=== PATIENT | female | born 1990 | race African-American/Black ===

== ENCOUNTER 2018-12-10 16:25 | Emergency (ER) | payer MEDICAID ==
[2018-12-10 16:43] VITALS: BP 131/79
--- NOTE | 2018-12-10 17:27 | ER Document Report ---
ED Medical Screen (RME) - General Chief Complaint: Abdominal Cramping Stated Complaint: VAGINAL BLEEDING WITH Time Seen by Provider: 12/10/18 17:22 Primary Care Provider: HEALTH,EMPLOYEE [Primary Care Provider] - Follow up as needed Notes: Patient is approximately 6 weeks , and her second , and she is having some cramping in vaginal spotting bleeding yesterday and then today about 3 PM she had some bleeding and passed what she calls a clot in the toilet bowl. She took a picture of what was in the toilet and I have looked at it and it looks more like a possible gestational sac along with some clot. Patient has been in good health. On no prescription medications. Does not smoke. - Related Data Allergies/Adverse Reactions: No Known Allergies Allergy (Unverified 12/28/12 16:42) Past Medical History - Social History Chew tobacco use (# tins/day): No Frequency of alcohol use: None Drug Abuse: None Family history: Reviewed & Not Pertinent Review of Systems - Review of Systems Notes: REVIEW OF SYSTEMS: CONSTITUTIONAL : Denies fever. EENT: Denies eye, ear, nose or mouth or throat pain or other symptoms. CARDIOVASCULAR: Denies chest pain. RESPIRATORY: Denies cough, chest congestion, or shortness of breath. GASTROINTESTINAL: Denies abdominal pain or nausea, vomiting, or diarrhea. GENITOURINARY: See HPI. MUSCULOSKELETAL: Denies back or neck pain. Denies joint pain or swelling. SKIN: Denies rash or skin lesions. NEUROLOGICAL: Denies LOC or altered mental status. Denies headache. Denies sensory loss or motor deficits. ALL OTHER SYSTEMS REVIEWED AND NEGATIVE. Physical Exam - Vital signs Vitals: Temp Pulse Resp BP Pulse Ox 99.0 F 80 16 131/79 H 99 12/10/18 16:42 12/10/18 16:42 12/10/18 16:42 12/10/18 16:42 12/10/18 16:42 Interpretation: Normal Notes: PHYSICAL EXAMINATION: GENERAL: Well-appearing, in no acute distress. HEAD: Atraumatic, normocephalic. NECK: Normal range of motion, supple. LUNGS: Breath sounds clear and equal bilaterally. HEART: Regular rate and rhythm without murmurs. ABDOMEN: Soft, nontender. No guarding or rebound. No masses. BACK: No tenderness throughout entire back. EXTREMITIES: Normal range of motion without pain. NEUROLOGICAL: Normal speech, normal gait. Normal sensory, motor, and reflex exams. Awake, alert, and oriented x3. Cranial nerves normal. PSYCH: Normal mood, normal affect. SKIN: Warm, dry, no rashes. Course - Re-evaluation Re-evalutation: 12/10/18 20:53 Beta-hCG is 350. Ultrasound does not show any evidence of . Patient says she felt a lot better and less cramps after passing the clots. 12/10/18 20:54 Patient's blood type is a positive so she does not need RhoGam. - Vital Signs Vital signs: Temp Pulse Resp BP Pulse Ox 99.0 F 80 16 131/79 H 99 12/10/18 16:42 12/10/18 16:42 12/10/18 16:42 12/10/18 16:42 12/10/18 16:42 - Laboratory Result Diagrams: 12/10/18 18:39 Laboratory results interpreted by me: 12/10/18 12/10/18 18:39 18:39 WBC 11.7 H Beta HCG, Quant 350.64 H - Diagnostic Test Radiology reviewed: Image reviewed, Reports reviewed - Ultrasound showed no evidence of in the uterus or outside the uterus. Doctor's Discharge - Discharge Clinical Impression: Miscarriage Condition: Stable Disposition: HOME, SELF-CARE Additional Instructions: Miscarriage You have had a miscarriage (medically called a "spontaneous "). The miscarriage occurred because the fetus did not develop normally. There is nothing you did to cause it, and nothing you could have done to prevent it. About one in four ends in miscarriage. You should rest in bed for two or three days. As there is some risk of infection of the uterus, you should not have intercourse for one week (or until okayed by your physician). You might not have a period for six to eight weeks. You should not become again for at least three months -- the uterus requires time to get back to normal. Call the doctor or return for re-examination if there is heavy or persistent vaginal bleeding, fever, foul discharge, continued cramping pains, or abdominal pain. Ibuprofen Ibuprofen is an excellent, safe drug for pain control. In addition, it has potent antiinflammatory effects which are beneficial, especially in the treatment of injuries, arthritis, or tendonitis. It's best to take ibuprofen with food. Persons with ulcer disease or allergy to aspirin should notify their physician of this before taking ibuprofen. Take the medication exactly as prescribed. Don't take additional doses unless instructed to do so by your doctor. If you develop wheezing, shortness of breath, hives, faintness, stomach pain, vomiting, or dark black stools, return for re-evaluation at once. USE OF ACETAMINOPHEN (Tylenol): Acetaminophen may be taken for pain relief or fever control. It's much safer than aspirin, offering a wider range of "safe" dosages. It is safe during . Some brand names are Tylenol, Panadol, Datril, Anacin 3, Tempra, and Liquiprin. Acetaminophen can be repeated every four hours. The following are maximum recommended dosages: WEIGHT Dose Drops Elixir Chewable(80mg) (LBS.) drprs=droppers tsp=teaspoon >89 pounds or adults 650 mg to 900 mg Acetaminophen can be repeated every four hours. Maximum dose not to exceed 4000 mg a day. These maximum recommended dosages are slightly higher than the dosages written on the product container, but these dosages are very safe and below the toxic dosage for acetaminophen. FOLLOW-UP CARE: If you have been referred to a physician for follow-up care, call the physicians office for an appointment as you were instructed or within the next two days. If you experience worsening or a significant change in your symptoms, notify the physician immediately or return to the Emergency Department at any time for re-evaluation. Return if you have new or worsening symptoms. Return if you have fevers, etc. 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 Referrals: HEALTH,EMPLOYEE [Primary Care Provider] - Follow up as needed
--- NOTE | 2018-12-10 18:52 | RADIOLOGY REPORT (SQ) ---
EXAM DESCRIPTION: U/S OB TRANSVAG W/DOPPLER COMPLETED DATE/TIME: 12/10/2018 6:29 pm REASON FOR STUDY: and vaginal bleeding COMPARISON: None. TECHNIQUE: Transvaginal static and realtime grayscale images acquired of the pelvis. Additional axel cted spectral and color Doppler images recorded. All images stored on PACs. CLINICAL AGE: Unknown BHCG: Not available. LIMITATIONS: None. FINDINGS: UTERUS: No visualized intrauterine . RIGHT ADNEXA: Ovary not identified due to poor acoustical window. No adnexal free fluid. No adnexal masses. LEFT ADNEXA: Normal ovary with normal vascular flow. No adnexal free fluid. No adnexal masses. FREE FLUID: None. OTHER: No other significant finding. IMPRESSION: NO VISUALIZED INTRA- OR EXTRAUTERINE . bHCG LEVEL TOO LOW TO EXPECT VISUALIZATION OF . ECTOPIC CANNOT BE EXCLUDED. FOLLOW-UP ULTRASOUND AND SERIAL BHCG LEVELS STRONGLY RECOMMENDED TO ACCURATELY ASSESS STATU S. TECHNICAL DOCUMENTATION: JOB ID: [id number] [employer]- All Rights Reserved Reading location - IP/workstation name: [email or web address]
[2018-12-10 18:55] LABS: ABSOLUTE EOSINOPHILS # (AUTO) 0.1 10^3/uL (0.0-0.6); ABSOLUTE LYMPHOCYTES (AUTO) 2.6 10^3/uL (0.5-4.7); ABSOLUTE MONOCYTES (AUTO) 0.9 10^3/uL (0.1-1.4); ABSOLUTE NEUT (AUTO) 8.1 10^3/uL (1.7-8.2); BASOPHILS % (AUTO) 0.3 % (0-2); EOSINOPHILS % (AUTO) 0.7 % (0-6); HEMATOCRIT 38.7 % (36.0-47.0); HEMOGLOBIN 12.7 g/dL (12.0-15.5); LYMPHOCYTES % (AUTO) 22.5 % (13-45); MEAN CORPUSCULAR HEMOGLOBIN 29.1 pg (27.0-33.4); MEAN CORPUSCULAR HGB CONC 32.7 g/dL (32.0-36.0); MEAN CORPUSCULAR VOLUME 89 fl (80-97); MONOCYTES % (AUTO) 7.3 % (3-13); PLATELET COUNT 274 10^3/uL (150-450); RED BLOOD COUNT 4.36 10^6/uL (3.72-5.28); RED CELL DISTRIBUTION WIDTH 12.3 % (11.5-14.0); SEGMENTED NEUTROPHILS % (AUTO) 69.2 % (42-78); TOTAL CELLS COUNTED % (AUTO) 100 %; WHITE BLOOD COUNT 11.7 10^3/uL (4.0-10.5)
== END 2018-12-10 19:18 | disposition home or self-care (01) ==
LOC: ER 16:25
DX: O03.9 Complete or unspecified spontaneous abortion without complication (principal); O26.891 Other specified pregnancy related conditions, first trimester; R10.9 Unspecified abdominal pain; Z3A.01 Less than 8 weeks gestation of pregnancy
CPT/HCPCS: 36415; 76817; 84702; 85025; 86900; 86901; 93976; 99284

== ENCOUNTER 2020-01-08 17:11 | Emergency (ER) | payer OTHER ==
[2020-01-08 17:16] VITALS: BP 125/79
--- NOTE | 2020-01-08 17:32 | ER Document Report ---
HPI - HPI Time Seen by Provider: 01/08/20 17:23 Pain Level: 1 Context: Patient is a 29-year-old female who presents emergency department with a chief complaint of check. Patient reports last menstrual cycle was November 27. Patient reports she is not on control. Patient reports she took 3 home digital test today which were positive. Patient states that she wanted to come to the emergency department because she did not believe test at home. Patient reports she wants confirmation saying she can take the right steps to obtain care. Patient reports she has had some lower abdominal cramping without vaginal bleeding or discharge. Patient denies urinary symptoms. - CONSTITUTIONAL Constitutional: DENIES: Fever, Chills - REPRODUCTIVE LMP: 11/27/19 Reproductive: REPORTS: : Past Medical History - General Information source: Patient - Social History Smoking Status: Never Smoker Chew tobacco use (# tins/day): No Frequency of alcohol use: None Drug Abuse: None Lives with: Family Family History: None Patient has suicidal ideation: No Patient has homicidal ideation: No - Past Medical History Cardiac Medical History: Reports: None Pulmonary Medical History: Reports: None EENT Medical History: Reports: None Neurological Medical History: Reports: None Endocrine Medical History: Reports: None Renal/ Medical History: Reports: None. Denies: Hx Peritoneal Dialysis Malignancy Medical History: Reports: None GI Medical History: Reports: None Musculoskeletal Medical History: Reports None Skin Medical History: Reports None Psychiatric Medical History: Reports: None Traumatic Medical History: Reports: None Infectious Medical History: Reports: None Surgical Hx: Negative Vertical Provider Document - CONSTITUTIONAL Agree With Documented VS: Yes Exam Limitations: No Limitations General Appearance: No Apparent Distress - INFECTION CONTROL TRAVEL OUTSIDE OF THE [place] IN LAST 30 DAYS: No - HEENT HEENT: Atraumatic, Normal ENT Exam, Normocephalic, PERRLA - NECK Neck: Normal Inspection - RESPIRATORY Respiratory: Breath Sounds Normal, No Respiratory Distress - CARDIOVASCULAR Cardiovascular: Regular Rate, Regular Rhythm - GI/ABDOMEN Gastrointestinal: Abdomen Soft, Abdomen Non-Tender, Normal Bowel Sounds - MUSCULOSKELETAL/EXTREMETIES Musculoskeletal/Extremeties: FROM - NEURO Level of Consciousness: Awake, Alert, Appropriate - DERM Integumentary: Warm, Dry, No Rash Course - Re-evaluation Re-evalutation: 01/08/20 17:31 Patient here for confirmation of . Will obtain a urinalysis as well as a urine hCG. I do not believe further work-up is necessary as the patient denies abdominal pain. Patient denies vaginal bleeding or discharge. 01/08/20 18:15 Patient's test was positive. Patient's urinalysis unremarkable witho ut infection. Patient sitting upright in chair no acute distress. Patient continues to deny abdominal pain, vaginal bleeding or discharge. Will have the patient follow-up with the health department. - Vital Signs Vital signs: Temp Pulse Resp BP Pulse Ox 98.1 F 88 18 125/79 98 01/08/20 17:15 01/08/20 17:15 01/08/20 17:15 01/08/20 17:15 01/08/20 17:15 - Laboratory Laboratory results interpreted by me: 01/08/20 18:08 Laboratory 01/08/20 17:30 Urine Color YELLOW Urine Appearance CLEAR Urine pH 7.0 Ur Specific [place] 1.019 Urine Protein NEGATIVE Urine Glucose (UA) NEGATIVE Urine Ketones NEGATIVE Urine Blood NEGATIVE Urine Nitrite NEGATIVE Urine Bilirubin NEGATIVE Urine Urobilinogen NEGATIVE Ur Leukocyte Esterase NEGATIVE Urine WBC (Auto) 1 Urine RBC (Auto) 1 Urine Bacteria (Auto) TRACE Squamous Epi Cells Auto 2 Urine Mucus (Auto) RARE Urine Ascorbic Acid 40 H Urine HCG, Qual POSITIVE H Discharge - Discharge Clinical Impression: Positive test Condition: Stable Disposition: HOME, SELF-CARE Additional Instructions: Today was seen in the emergency department to confirm that you are . You did have a positive test here. You do need to establish care with an CULINARY ASSISTANT. [facility] Please make sure that you establish care, start taking a vitamin, and stop taking the ibuprofen that was prescribed to you for your recent dental extraction. If you are in pain you can take Tylenol. Please make sure you are drinking plenty of fluids. Before you are able to follow-up with your CULINARY ASSISTANT return to the emergency department if you develop abdominal pain, vaginal bleeding, discharge is different from her normal or any new or worsening symptoms. You are . care is best started as early in as possible. If you're unsure about continuing this , you should discuss this with your physician or with intelligence operations specialist at [facility]. You should take only medications approved by your physician. Acetaminophen can safely be taken for minor pains. As a rule, medication for chronic conditions such as asthma or seizures can safely be continued. You should discuss with the physician every medicine you take. Any regular exercise program can be continued. Talk to your physician, however, before engaging in competitive or demanding sports. Alcohol, smoking, and "street drugs" are dangerous to your baby. Cocaine is especially dangerous. Don't use any illicit drugs! Referrals: [facility] [Provider Group] - Follow up as needed
[2020-01-08 17:56] LABS: APPEARANCE,URINE CLEAR; BILIRUBIN,URINE NEGATIVE (NEGATIVE); COLOR,URINE YELLOW; GLUCOSE, URINE NEGATIVE (NEGATIVE); KETONES,URINE NEGATIVE (NEGATIVE); LEUKOCYTE ESTERASE,URINE NEGATIVE (NEGATIVE); NITRITE,URINE NEGATIVE (NEGATIVE); PROTEIN,URINE NEGATIVE (NEGATIVE); URINE SPECIFIC GRAVITY 1.019; UROBILINOGEN,URINE NEGATIVE mg/dL (<2.0)
== END 2020-01-08 18:17 | disposition home or self-care (01) ==
LOC: ER 17:11
DX: Z32.01 Encounter for pregnancy test, result positive (principal); R10.30 Lower abdominal pain, unspecified
CPT/HCPCS: 81001; 81025; 99282

== ENCOUNTER 2020-08-19 08:51 | Outpatient (CLI) | payer OTHER ==
[2020-08-19 09:26] LABS: APPEARANCE,URINE SLIGHTLY-CLOUDY; BILIRUBIN,URINE NEGATIVE (NEGATIVE); COLOR,URINE YELLOW; GLUCOSE, URINE NEGATIVE (NEGATIVE); KETONES,URINE NEGATIVE (NEGATIVE); LEUKOCYTE ESTERASE,URINE NEGATIVE (NEGATIVE); NITRITE,URINE NEGATIVE (NEGATIVE); PROTEIN,URINE NEGATIVE (NEGATIVE); URINE SPECIFIC GRAVITY 1.006; UROBILINOGEN,URINE NEGATIVE mg/dL (<2.0)
[2020-08-19 10:09] LABS: URINE AMPHETAMINES SCREEN NEGATIVE; URINE BARBITURATES SCREEN NEGATIVE; URINE BENZODIAZEPINES SCREEN NEGATIVE; URINE COCAINE SCREEN NEGATIVE; URINE MARIJUANA (THC) SCREEN NEGATIVE; URINE METHADONE SCREEN NEGATIVE; URINE PHENCYCLIDINE SCREEN NEGATIVE
--- NOTE | 2020-08-19 11:33 | Non Stress Test Report ---
Non Stress Test Datetime Report Generated by CPN: 08/19/2020 11:32 DEMOGRAPHIC EGA NST: 38.0 INDICATION Indication for Study (NST) Other: LC Provider Order VITAL SIGNS Temperature - NST: 98.2 Pulse - NST: 96 RESP - NST: 16 NBPSYS NST: 133 NBPDIA NST: 80 MONITORING Monitor Explained: Monitor Explained; Test Explained; Patient Verbalized Understanding Time on Monitor: 08/19/2020 10:00 Time off Monitor: 08/19/2020 10:59 NST Duration: 59 NST INTERVENTIONS NST Interventions: IV Fluids Physician Notified NST: Dr. Puga/ K Stewart CNM BABY A: [id number] BABY A Movement : Present Contraction Frequency : Irregular, Irritability FHR Baseline : 135 Accelerations : 15X15 Decelerations : None Variability : Moderate 6-25bpm NST Review: Meets Criteria for Reactive NST NST Review and Verified By : C. Warren RN NST Results: Reactive NST COMMENTS NST Comments: CNM on unit reviewing FHT strip NST REPORT Report Trigger: Send Report
== END 2020-08-19 11:13 | disposition home or self-care (01) ==
LOC: LC 08:51
PROVIDERS: ATTEND Obstetrics & Gynecology Gynecology
DX: O47.1 False labor at or after 37 completed weeks of gestation (principal); Z3A.38 38 weeks gestation of pregnancy
CPT/HCPCS: 59025; 80307; 81005

== ENCOUNTER 2020-09-01 02:45 | Outpatient (CLI) | payer OTHER ==
[2020-09-01 03:46] LABS: APPEARANCE,URINE SLIGHTLY-CLOUDY; BILIRUBIN,URINE NEGATIVE (NEGATIVE); COLOR,URINE YELLOW; GLUCOSE, URINE NEGATIVE (NEGATIVE); KETONES,URINE NEGATIVE (NEGATIVE); LEUKOCYTE ESTERASE,URINE NEGATIVE (NEGATIVE); NITRITE,URINE NEGATIVE (NEGATIVE); PROTEIN,URINE NEGATIVE (NEGATIVE); URINE SPECIFIC GRAVITY 1.004; UROBILINOGEN,URINE NEGATIVE mg/dL (<2.0)
[2020-09-01 04:00] LABS: URINE AMPHETAMINES SCREEN NEGATIVE; URINE BARBITURATES SCREEN NEGATIVE; URINE BENZODIAZEPINES SCREEN NEGATIVE; URINE COCAINE SCREEN NEGATIVE; URINE MARIJUANA (THC) SCREEN NEGATIVE; URINE METHADONE SCREEN NEGATIVE; URINE PHENCYCLIDINE SCREEN NEGATIVE
--- NOTE | 2020-09-01 05:36 | Non Stress Test Report ---
Non Stress Test Datetime Report Generated by CPN: 09/01/2020 05:36 DEMOGRAPHIC EGA NST: 39.6 INDICATION Indication for Study (NST) Other: labor check URINE RESULTS Urine Protein, NST: Negative Urine Ketones - NST: Negative Urine Glucose - NST: Negative Urine Blood - NST: Negative MONITORING Monitor Explained: Monitor Explained; Test Explained Time on Monitor: 09/01/2020 03:10 Time off Monitor: 09/01/2020 05:10 NST Duration: 120 NST INTERVENTIONS NST Interventions: PO Hydration; Reposition Patient BABY A: [id number] BABY A Movement : Present Contraction Frequency : 5-9 FHR Baseline : 135 Accelerations : 15X15 Decelerations : None Variability : Moderate 6-25bpm NST Review: Meets Criteria for Reactive NST NST Review and Verified By : Gregg Wang RN NST Results: Reactive NST REPORT Report Trigger: Send Report
== END 2020-09-01 05:26 | disposition home or self-care (01) ==
LOC: LC 02:45
PROVIDERS: ATTEND Student in an Organized Health Care Education/Training Program
DX: O47.1 False labor at or after 37 completed weeks of gestation (principal); Z3A.39 39 weeks gestation of pregnancy
CPT/HCPCS: 59025; 80307; 81005

== ENCOUNTER 2020-09-05 02:16 | Inpatient (IN) | payer OTHER ==
[2020-09-05] MEDS ORDERED: OXYTOCIN 10 UNIT/ML VIAL ONE (02:59)
[2020-09-05] MEDS ORDERED: MISOPROSTOL 0.2 MG TABLET ONE (02:59)
[2020-09-05] MEDS ORDERED: PENICILLIN G-K 5 MILLION UNIT VIAL ONE ×3 (03:00→10:52)
[2020-09-05] MEDS ORDERED: OXYTOCIN/0.9 % SODIUM CHLORIDE 30 UNIT/500 ML RTUINJ ONE (03:00)
[2020-09-05] MEDS ORDERED: LIDOCAINE 1% INJ-PF (10 MG/ML) 30 ML SDV ONE (03:00)
[2020-09-05] MEDS ORDERED: PENICILLIN G POTASSIUM 5,000,000 UNIT in DEXTROSE 5%-WATER 100 ML IV ONE (03:22)
[2020-09-05] MEDS ORDERED: RINGERS SOLUTION,LACTATED 1,000 ML IV PRN (03:22)
[2020-09-05] MEDS ORDERED: RINGERS SOLUTION,LACTATED 1,000 ML IV ONE (03:22)
[2020-09-05 04:03] LABS: ABSOLUTE LYMPHOCYTES (AUTO) 1.8 10^3/uL (0.5-4.7); ABSOLUTE MONOCYTES (AUTO) 0.9 10^3/uL (0.1-1.4); ABSOLUTE NEUT (AUTO) 5.8 10^3/uL (1.7-8.2); BASOPHILS % (AUTO) 0.3 % (0-2); EOSINOPHILS % (AUTO) 0.2 % (0-6); HEMATOCRIT 34.8 % (36.0-47.0); HEMOGLOBIN 11.8 g/dL (12.0-15.5); LYMPHOCYTES % (AUTO) 21.2 % (13-45); MEAN CORPUSCULAR HEMOGLOBIN 28.2 pg (27.0-33.4); MEAN CORPUSCULAR VOLUME 83 fl (80-97); MONOCYTES % (AUTO) 10.2 % (3-13); PLATELET COUNT 206 10^3/uL (150-450); RED CELL DISTRIBUTION WIDTH 15.9 % (11.5-14.0); SEGMENTED NEUTROPHILS % (AUTO) 68.1 % (42-78); TOTAL CELLS COUNTED % (AUTO) 100 %; WHITE BLOOD COUNT 8.6 10^3/uL (4.0-10.5)
[2020-09-05] MEDS ORDERED: PENICILLIN G POTASSIUM 2,500,000 UNIT in DEXTROSE 5%-WATER 50 ML IV SCH (07:23)
[2020-09-05 07:53] LABS: APPEARANCE,URINE CLEAR; BILIRUBIN,URINE NEGATIVE (NEGATIVE); COLOR,URINE YELLOW; GLUCOSE, URINE NEGATIVE (NEGATIVE); KETONES,URINE NEGATIVE (NEGATIVE); LEUKOCYTE ESTERASE,URINE NEGATIVE (NEGATIVE); NITRITE,URINE NEGATIVE (NEGATIVE); PROTEIN,URINE NEGATIVE (NEGATIVE); URINE SPECIFIC GRAVITY 1.011; UROBILINOGEN,URINE NEGATIVE mg/dL (<2.0)
[2020-09-05 08:09] LABS: URINE AMPHETAMINES SCREEN NEGATIVE; URINE BARBITURATES SCREEN NEGATIVE; URINE BENZODIAZEPINES SCREEN NEGATIVE; URINE COCAINE SCREEN NEGATIVE; URINE MARIJUANA (THC) SCREEN NEGATIVE; URINE METHADONE SCREEN NEGATIVE; URINE PHENCYCLIDINE SCREEN NEGATIVE
[2020-09-05] MEDS ORDERED: GLYCERIN/WITCH HAZEL LEAF 1 EACH MED..WIPE TP PRN (11:46)
[2020-09-05] MEDS ORDERED: PROMETHAZINE HCL 25 MG TABLET PO PRN (11:46)
[2020-09-05] MEDS ORDERED: PROMETHAZINE HCL INJ 25 MG/1 ML VIAL IV PRN (11:46)
[2020-09-05] MEDS ORDERED: BENZOCAINE/MENTHOL AEROSOL SPRAY 56 ML TOP PRN (11:46)
[2020-09-05] MEDS ORDERED: OXYTOCIN/0.9 % SODIUM CHLORIDE 30 UNIT/500 ML RTUINJ IV PRN (11:46)
[2020-09-05] MEDS ORDERED: DIBUCAINE 1% OINTMENT 28 GM TP PRN (11:46)
[2020-09-05] MEDS ORDERED: MEASLES,MUMPS&RUBELLA VACC/PF 0.5 ML VIAL SUBCUT PRN (11:46)
[2020-09-05] MEDS ORDERED: DIPHENHYDRAMINE HCL 25 MG CAPSULE PO PRN (11:46)
[2020-09-05] MEDS ORDERED: MAGNESIUM HYDROXIDE SUSP 30 ML UDCUP PO PRN (11:46)
[2020-09-05] MEDS ORDERED: NA PHOS,M-B/NA PHOS,DI-BA (ADULT) 133 ML ENEMA PR PRN (11:46)
[2020-09-05] MEDS ORDERED: DIPH/PERTUSS(ACELL)/TETANUS VAC/PF 0.5 ML SYR (>=10YO) IM PRN (11:46)
[2020-09-05] MEDS ORDERED: PSEUDOEPHEDRINE HCL 30 MG TABLET PO PRN (11:46)
[2020-09-05] MEDS ORDERED: PROMETHAZINE HCL 25 MG SUPP.RECT PR PRN (11:46)
[2020-09-05] MEDS ORDERED: IBUPROFEN 800 MG TABLET ONE (11:49)
[2020-09-05] MEDS ORDERED: BENZOCAINE/MENTHOL AEROSOL SPRAY 56 ML ONE (11:50)
--- NOTE | 2020-09-05 12:27 | Warning Signs in Babies ---
VOD Warning Signs Datetime Report Generated by [facility]: 09/05/2020 12:27 VOD#608 -Warning Signs in Babies: Viewed with Parent(s)/Family (08/19/2020 09:01:Soraya Harvey RN)
[2020-09-05] MEDS: ACETAMINOPHEN 325 MG TABLET PO PRN (16:12)
[2020-09-05] MEDS: IBUPROFEN 800 MG TABLET PO SCH ×2 (18:09→21:50)
[2020-09-05] MEDS: DOCUSATE SODIUM 100 MG CAPSULE PO SCH (18:10)
[2020-09-05] MEDS: FERROUS SULFATE 325 MG TABLET PO SCH (18:11)
[2020-09-05] MEDS: FAMOTIDINE 20 MG TABLET PO SCH (21:49)
[2020-09-06] MEDS: ACETAMINOPHEN 325 MG TABLET PO PRN (03:24)
[2020-09-06] MEDS: IBUPROFEN 800 MG TABLET PO SCH ×3 (05:07→21:38)
[2020-09-06 06:58] LABS: HEMATOCRIT 30.4 % (36.0-47.0); HEMOGLOBIN 10.2 g/dL (12.0-15.5); MEAN CORPUSCULAR HGB CONC 33.4 g/dL (32.0-36.0); MEAN CORPUSCULAR VOLUME 84 fl (80-97); PLATELET COUNT 191 10^3/uL (150-450); RED BLOOD COUNT 3.63 10^6/uL (3.72-5.28); RED CELL DISTRIBUTION WIDTH 16.4 % (11.5-14.0); WHITE BLOOD COUNT 16.1 10^3/uL (4.0-10.5)
--- NOTE | 2020-09-06 10:51 | PDOC PROGRESS REPORT ---
Subjective-OB Progress Note for:: 09/06/20 Physical Exam (OB) Vital Signs: Temp Pulse Resp BP Pulse Ox 97.6 F 69 14 103/68 100 09/06/20 08:00 09/06/20 08:00 09/06/20 08:00 09/06/20 08:00 09/06/20 08:00 Intake & Output 09/05/20 09/06/20 09/07/20 06:59 06:59 06:59 Intake Total 1250 Balance 1250 Weight 76.6 kg - PIH/Pre-Eclampsia Clonus: Negative Headache: Absent Epigastric Pain: No Visual Changes: No - Maternal Morbidity 59. Maternal Morbidity (serious complications experinced by the mother associated with labor and delivery: None of the above - Lochia Lochia Amount: Scant < 10 ml Lochia Color: Rubra/Red - Abdomen Description: Soft Hernia Present: No Bowel Sounds: Normoactive Flatus Presence: Present Stool: No Fundal Description: Firm, Midline Fundal Height: u/u - u/2 Objective-Diagnostic Laboratory: 09/06/20 06:25 09/06/20 06:25 WBC 16.1 H RBC 3.63 L Hgb 10.2 L Hct 30.4 L MCV 84 MCH 28.0 MCHC 33.4 RDW 16.4 H Plt Count 191 Assessment and Plan(PN) - Time Spent with Patient Time with patient: Less than 15 minutes Medications reviewed and adjusted accordingly: Yes - Disposition Anticipated Discharge Disposition: Home, Self Care Anticipated Discharge Timeframe: within 36 hours
[2020-09-06] MEDS: FERROUS SULFATE 325 MG TABLET PO SCH ×2 (20:02→20:04)
[2020-09-06] MEDS: DOCUSATE SODIUM 100 MG CAPSULE PO SCH (20:02)
[2020-09-06] MEDS: FAMOTIDINE 20 MG TABLET PO SCH (20:03)
[2020-09-06] MEDS: SENNOSIDES/DOCUSATE 8.6-50 MG 1 EACH TABLET PO SCH (20:03)
[2020-09-06] MEDS: PRENATAL VITAMIN W DHA CAPSULE PO SCH (20:03)
[2020-09-07] MEDS: IBUPROFEN 800 MG TABLET PO SCH (06:04)
[2020-09-07 07:18] LABS: HEMATOCRIT 27.5 % (36.0-47.0); HEMOGLOBIN 9.4 g/dL (12.0-15.5); MEAN CORPUSCULAR HEMOGLOBIN 28.8 pg (27.0-33.4); MEAN CORPUSCULAR HGB CONC 34.2 g/dL (32.0-36.0); MEAN CORPUSCULAR VOLUME 84 fl (80-97); PLATELET COUNT 178 10^3/uL (150-450); RED BLOOD COUNT 3.28 10^6/uL (3.72-5.28); RED CELL DISTRIBUTION WIDTH 16.1 % (11.5-14.0); WHITE BLOOD COUNT 8.7 10^3/uL (4.0-10.5)
[2020-09-07 08:46] VITALS: BP 102/60
--- NOTE | 2020-09-07 09:37 | PDOC PROGRESS REPORT ---
Subjective-OB Progress Note for:: 09/07/20 Subjective: doing well, no c/o, ready to go home Physical Exam (OB) Vital Signs: Temp Pulse Resp BP Pulse Ox 97.7 F 72 20 102/60 100 09/07/20 08:00 09/07/20 08:00 09/07/20 08:00 09/07/20 08:00 09/07/20 08:00 Intake & Output 09/06/20 09/07/20 09/08/20 06:59 06:59 06:59 Intake Total 1250 600 Output Total 2 Balance 1250 598 - PIH/Pre-Eclampsia DTR's: 1 + Clonus: Negative Headache: Absent Epigastric Pain: No Visual Changes: No - Maternal Morbidity 59. Maternal Morbidity (serious complications experinced by the mother associated with labor and delivery: None of the above - Lochia Lochia Amount: Scant < 10 ml Lochia Color: Rubra/Red - Abdomen Description: Firm, Soft Hernia Present: No Fundal Description: Midline Fundal Height: u/u - u/2 Objective-Diagnostic Laboratory: 09/07/20 06:35 09/07/20 06:35 WBC 8.7 RBC 3.28 L Hgb 9.4 L Hct 27.5 L MCV 84 MCH 28.8 MCHC 34.2 RDW 16.1 H Plt Count 178 Assessment and Plan(PN) - Assessment and Plan (1) Anemia Qualifiers: Other causes of anemia: acute posthemorrhagic Is this a current diagnosis for this admission?: Yes (2) Positive GBS test Is this a current diagnosis for this admission?: Yes (3) Delivery normal Is this a current diagnosis for this admission?: Yes - Time Spent with Patient Time with patient: Less than 15 minutes Medications reviewed and adjusted accordingly: Yes - Disposition Anticipated Discharge Disposition: Home, Self Care Anticipated Discharge Timeframe: within 24 hours
--- NOTE | 2020-09-07 09:41 | PDOC DISCHARGE SUMMARY ---
Impression - Admit/DC Date/PCP Admission Date/Primary Care Provider: 09/05/20 03:03 RODRÍGUEZ DING MD Discharge Date: 09/07/20 - Discharge Diagnosis (1) Anemia Is this a current diagnosis for this admission?: Yes (2) Positive GBS test Is this a current diagnosis for this admission?: Yes (3) Delivery normal Is this a current diagnosis for this admission?: Yes - Additional Information Resuscitation Status: Full Code Discharge Diet: As Tolerated, Regular Discharge Activity: Activity As Tolerated, Pelvic Rest Referrals: RODRÍGUEZ DING MD [Primary Care Provider] - Home Medications: Multivitamins W-Iron [Flintstones Chewable Multivit W/Fe Tab] 1 tab PO DAILY 12/28/12 Ferrous Sulfate [Feosol 325 mg Tablet] 325 mg PO DAILY 08/19/20 HPI Gestational Age: 40.3 Reason(s) for Admission: Onset of Labor, PROM, Group B Strep Positive Procedures: NST, Ultrasound Intrapartum Procedure(s): Spontaneous Vaginal Delivery Hospital Course Hospital Course: routine 59. Maternal Morbidity (serious complications experinced by the mother associated with labor and delivery: None of the above Results Laboratory Results: WBC 8.7 10^3/uL (4.0-10.5) 09/07/20 06:35 RBC 3.28 10^6/uL (3.72-5.28) L 09/07/20 06:35 Hgb 9.4 g/dL (12.0-15.5) L 09/07/20 06:35 Hct 27.5 % (36.0-47.0) L 09/07/20 06:35 MCV 84 fl (80-97) 09/07/20 06:35 MCH 28.8 pg (27.0-33.4) 09/07/20 06:35 MCHC 34.2 g/dL (32.0-36.0) 09/07/20 06:35 RDW 16.1 % (11.5-14.0) H 09/07/20 06:35 Plt Count 178 10^3/uL (150-450) 09/07/20 06:35 Lymph % (Auto) 21.2 % (13-45) 09/05/20 03:43 [place] % (Auto) 10.2 % (3-13) 09/05/20 03:43 Eos % (Auto) 0.2 % (0-6) 09/05/20 03:43 Baso % (Auto) 0.3 % (0-2) 09/05/20 03:43 Absolute Neuts (auto) 5.8 10^3/uL (1.7-8.2) 09/05/20 03:43 Absolute Lymphs (auto) 1.8 10^3/uL (0.5-4.7) 09/05/20 03:43 Absolute Monos (auto) 0.9 10^3/uL (0.1-1.4) 09/05/20 03:43 Absolute Eos (auto) 0.0 10^3/uL (0.0-0.6) 09/05/20 03:43 Absolute Basos (auto) 0.0 10^3/uL (0.0-0.2) 09/05/20 03:43 Seg Neutrophils % 68.1 % (42-78) 09/05/20 03:43 Urine Color YELLOW 09/05/20 07:10 Urine Appearance CLEAR 09/05/20 07:10 Urine pH 7.0 (5.0-9.0) 09/05/20 07:10 Ur Specific [place] 1.011 09/05/20 07:10 Urine Protein NEGATIVE mg/dL (NEGATIVE) 09/05/20 07:10 Urine Glucose (UA) NEGATIVE mg/dL (NEGATIVE) 09/05/20 07:10 Urine Ketones NEGATIVE mg/dL (NEGATIVE) 09/05/20 07:10 Urine Blood MODERATE (NEGATIVE) H 09/05/20 07:10 Urine Nitrite NEGATIVE (NEGATIVE) 09/05/20 07:10 Urine Bilirubin NEGATIVE (NEGATIVE) 09/05/20 07:10 Urine Urobilinogen NEGATIVE mg/dL (<2.0) 09/05/20 07:10 Ur Leukocyte Esterase NEGATIVE (NEGATIVE) 09/05/20 07:10 Urine Ascorbic Acid NEGATIVE (NEGATIVE) 09/05/20 07:10 Membranes Rupture POSITIVE (NEGATIVE) H 09/05/20 02:40 Urine Opiates Screen NEGATIVE 09/05/20 07:10 Urine Methadone Screen NEGATIVE 09/05/20 07:10 Ur Barbiturates Screen NEGATIVE 09/05/20 07:10 Ur Phencyclidine Scrn NEGATIVE 10/28/20 07:10 Ur Amphetamines Screen NEGATIVE 09/05/20 07:10 U Benzodiazepines Scrn NEGATIVE 09/05/20 07:10 Urine Cocaine Screen NEGATIVE 09/05/20 07:10 U Marijuana (THC) Screen NEGATIVE 09/05/20 07:10 RPR NONREACTIVE (NONREACTIVE) 09/05/20 03:43 Blood Type A POSITIVE 09/05/20 03:43 Antibody Screen NEGATIVE 09/05/20 03:43 Plan Health Concerns: routine Plan of Treatment: discharge home, rev S&S to report Goals: no complications Time Spent: Less than 30 Minutes
[2020-09-07] MEDS: SENNOSIDES/DOCUSATE 8.6-50 MG 1 EACH TABLET PO SCH (10:30)
[2020-09-07] MEDS: PRENATAL VITAMIN W DHA CAPSULE PO SCH (10:30)
[2020-09-07] MEDS: DOCUSATE SODIUM 100 MG CAPSULE PO SCH (10:31)
[2020-09-07] MEDS: FAMOTIDINE 20 MG TABLET PO SCH ×2 (10:31→10:40)
[2020-09-07] MEDS: FERROUS SULFATE 325 MG TABLET PO SCH (10:31)
--- NOTE | 2020-09-11 10:54 | Delivery Summary ---
Del Sum A-C Datetime Report Generated by CPN: 09/11/2020 10:53 DELIVERY PERSONNEL DELIVERY PERSONNEL: [id number] Delivery Doctor:: Emilee Tolentino CNM Labor and Delivery Nurse:: Soraya Harvey RNtitle officer Nurse:: ROSE Royal Nursery Nurse:: Marixa Chew RN Direct Marketing Specialist/SHELL MOLDER: Comfort Hong, ST Direct Marketing Specialist/SHELL MOLDER: Cindy Ocampo, HEAD SAWYER MATERNAL INFORMATION Delivery Anesthesia: None Medications After Delivery: Pitocin 30 Units in 500ml NS/D5W Delivery QBL: 231 Maternal Complications: Precipitous Labor (<3hrs) Complication Details: RN remained at from 924 until delivery of infant with continuous monitoring of EFM. Provider Comments: pt progressed to complete, began pushing and quickly delivered a viable baby girl with vigorous respiratory effort and cry spontaneously at . Baby placed on maternal abdomen, cord allowed to stop pulsating then clamped x2 and cut by FOB (3vc noted). Placenta delivered spontaneously intact. Fundus firm @ u+1 then in and out catheter with 150ml urine out, moderate bleeding continued with grape size clot at cervical os then minimal bleeding and fundus firm @ u. Vaginal and perineum inspection revealed no lacerations. Mother and baby remain skin to skin and bonding at this time. LABOR SUMMARY EDC: 09/02/2020 00:00 No. Babies in Womb: 1 Attempted: No Labor Anesthesia: None LABOR INFORMATION Reason for Induction: Not Applicable Onset of Labor: 09/05/2020 09:00 Complete Dilatation: 09/05/2020 10:53 Oxytocin: N/A Group B Beta Strep: positive Antibiotics # of Doses: 3 Antibiotics Time of Last Dose: 09/05/2020 11:00 Name of Antibiotic Given: PCN Steroids Given: None Reason Steroids Not Administered: Not Applicable MEMBRANES Membranes Rupture Method: Spontaneous Rupture of Membranes: 09/05/2020 01:00 Length of Rupture (hr): 10.40 Amniotic Fluid Color: Clear Amniotic Fluid Amount: Moderate Amniotic Fluid Odor: Normal STAGES OF LABOR Stage 1 hr: 1 Stage 1 min: 53 Stage 2 hr: 0 Stage 2 min: 31 Stage 3 hr: 0 Stage 3 min: 5 Total Time in Labor hr: 2 Total Time in Labor min: 29 VAGINAL DELIVERY Episiotomy: None Laceration #1: None Laceration Extension #1: N/A Laceration #2: None Laceration #3: None Laceration Repair: Not Applicable Sponge Count Correct: N/A BABY A INFORMATION Delivery Date/Time: 09/05/2020 11:24 Method of Delivery: Vaginal Method of Delivery: Vaginal Born in Route : No : N/A Forceps: N/A Vacuum Extraction: N/A Shoulder Dystocia : No PRESENTATION/POSITION BABY A Presentation: Cephalic Presentation: Cephalic Presentation: Cephalic Presentation: Unable to Assess Cephalic Presentation: Vertex Breech Presentation: N/A PLACENTA INFORMATION BABY A Placenta Delivery Time : 09/05/2020 11:29 Placenta Method of Delivery: Spontaneous Placenta Status: Delivered SCORES BABY A Heart Rate 1 min: >100 bpm Resp Effort 1 min: Good Cry Reflex Irritability 1 min: Cough or Sneeze or Pulls Away Muscle Tone 1 min: Active Motion Color 1 min: Body [place], Extremities Blue Resuscitation Effort 1 min: Tactile Stimulation SCORE 1 MIN: 9 Heart Rate 5 min: >100 bpm Resp Effort 5 min: Good Cry Reflex Irritability 5 min: Cough or Sneeze or Pulls Away Muscle Tone 5 min: Active Motion Color 5 min: Body [place], Extremities Blue Resuscitation Effort 5 min: N/A SCORE 5 MIN: 9 INFANT INFORMATION BABY A Gestational Age at Delivery: 40.3 Gestational Status: Full Term- 39- 40.6 Weeks Infant Outcome : Liveborn Infant Condition : Stable Infant Sex: Female Sex: Female IDENTIFICATION BABY A Verification Date/Time: 09/05/2020 12:20 ID Band Number: [id number] Mother's Name Verified: Yes Infant RN Verifying Infant: Chip Harvey Additional Verifying Personnel: Emmy Mcdowellfer, RN WEIGHT/LENGTH BABY A Infant Birthweight (gm): 3090 Weight (lb): 6 Weight (oz): 13 Length (in): 20.25 Length (cm): 51.44 CORD INFORMATION BABY A No. Cord Vessels: 3 Nuchal Cord : N/A Infant Suction: None ASSESSMENT BABY A Skin to Skin: No BABY B INFORMATION : N/A SIGNATURES Assignment: Gretchen Riley MD Signature: with User ID: [email or web address] : with User ID: [email or web address]
--- NOTE | 2020-09-11 10:55 | Admission Physical ---
Datetime Report Generated by CPN: 09/11/2020 10:54 CURRENT ADMISSION Chief Complaint: Suspected Ruptured Membranes Admit Impression : Term, Intrauterine ; Ruptured Membranes Admit Plan: Admit to Unit; Initiate Labor Protocol ALLERGIES Medication Allergies: No Medication Allergies: No Known Allergies (09/01/2020) Medication Allergies: No Known Allergies (08/19/2020) Medication Allergies: No Known Allergies (12/28/2012) Latex: No Latex Allergies OBSTETRICAL HISTORY EDC: 09/02/2020 00:00 : 3 Para: 1 Term: 0 : 1 SAB: 0 IAB: 0 Ectopic: 0 Livin Cesareans: 0 VBACs: 0 Multiple Births: 0 Gestational Diabetes: No Rh Sensitization: No Incompetent Cervix: No SPARKLE: No Infertility: No ART Treatment: No Uterine Anomaly: No IUGR: No Hx Previous C/S: No Macrosomia: No Hx Loss/Stillborn: No PIH: No Hx : No Placenta Previa/Abruption: No Depression/PP Depression: No PTL/PROM: Yes Post Hemorrhage: No Current Procedures: Ultrasound; NST Obstetrical History Comments: g1 12/28/12 @ 36.6 g2 - current +GBS SEE RECORDS Alcohol: No Marijuana : No Cocaine: No Other Illicit Drugs: No MEDICAL HISTORY Diabetes: No Blood Transfusion: No Pulmonary Disease (Asthma, TB): No Breast Disease: No Hypertension: No Energy Broker Surgery: No Heart Disease: No Hosp/Surgery: Yes Autoimmune Disorder: No Anesthetic Complications: No Kidney Disease: No Abnormal Pap Smear: Yes Neuro/Epilepsy: No Psychiatric Disorders: No Other Medical Diseases: No Hepatitis/Liver Disease: No Significant Family History: No Varicosities/Phlebitis: No Trauma/Violence : No Thyroid Dysfunction: No Medical History Comments: LEEP 2017 LGSIL - needs repeat pap PP stye removal 2004 tooth extraction 2019 INFECTIOUS HISTORY Gonorrhea: No Genital Herpes: No Chlamydia: No Tuberculosis: No Syphilis: No Hepatitis: No HIV/AIDS Exposure: No Rash or Viral Illness: No HPV: Yes Infectious History Comments: 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
== END 2020-09-07 13:00 | disposition home or self-care (01) | DRG 807 ==
LOC: LB 02:16 → LR 03:03 → 2S 14:05
PROVIDERS: ADMIT Obstetrics & Gynecology Gynecology; ATTEND Obstetrics & Gynecology Gynecology
PROC: 10E0XZZ Delivery of Products of Conception, External Approach (ICD-10-PCS; principal; 2020-09-05)
DX: O99.824 Streptococcus B carrier state complicating childbirth (principal); Z37.0 Single live birth; O99.02 Anemia complicating childbirth; D64.9 Anemia, unspecified; O62.3 Precipitate labor; Z20.828 Contact with and (suspected) exposure to other viral communicable diseases; Z3A.40 40 weeks gestation of pregnancy
CPT/HCPCS: 36415; 80307; 81005; 84112; 85025; 85027; 86592; 86850; 86900; 86901; J2540; J2590; J3490; J7060